=== PATIENT | male | born 1955 | race Caucasian/White ===

== ENCOUNTER → 2023-12-10 08:08 | Outpatient (REF) | payer MEDICARE, OTHER, SELFPAY | LOC: DHSLP 08:08 | PROVIDERS: ATTENDING PHYSICIAN Internal Medicine Critical Care Medicine | DX: G47.61 Periodic limb movement disorder (principal); R06.83 Snoring | CPT/HCPCS: 95810 ==

== ENCOUNTER 2023-12-28 20:06 | Inpatient (IN) | payer MEDICARE, OTHER, SELFPAY ==
[2023-12-28 17:09] VITALS: BP 164/97
--- NOTE | 2023-12-28 17:50 | ED.CVA ---
History of Present Illness
General
Chief Complaint: CVA/TIA Symptoms
Source: patient and spouse
Exam Limitations: none
Time Seen by Provider: 12/28/23 17:33
Onset of Stroke Symptoms
Onset of symptoms known: No
Time pt last seen normal is known: Yes
Date last time pt seen normal: 12/28/23
Travel History
Have you had any contact with someone who has COVID-19?: No
Do you have any symptoms of coronavirus? Fever > 100 degrees, chills, cough, shortness of breath, sore throat, loss of taste or smell, muscle aches, or headache?: No
History of Present Illness
History of Present Illness:
See MDM
Past History
Past History
ED Past Medical History: Hypercholesterolemia and Other (Fibromyalgia)
ED Past Surgical History: Orthopedic
Social History
Tobacco: Non-smoker
Alcohol: None
Phy Exam
Physical Exam
Physical Exam:
See MDM
Scores
NIH Stroke Score
Level of Consciousness: 0 - Alert
LOC Questions: 0-Answers both correctly
LOC Commands: 0-Performs both correctly
Best Horizontal Gaze: 0-Normal
Visual Beth: 0=Normal, no visual loss
Facial Palsy: 0=Normal, symmetrical
Motor - Right Arm: 0=No drift 10 seconds
Motor - Left Arm: 0=No drift 10 seconds
Motor - Right Le-No drift 5 seconds
Motor - Left Le-No drift 5 seconds
Limb Ataxia: 0-Absent
Sensation: 0-Normal
Best Language: 0-No aphasia
Dysarthria: 0-Normal
Extinction and Inattention: 0-No abnormality
Total Score:: 0
Course
Orders/Labs/Results
Orders:
Orders
12/28/23 17:48
NEUROLOGY CONSULT Routine
Consulting Provider: Chio Mckeon
Was physician already notified: Yes
12/28/23 17:51
Complete Blood Count/With Diff Urgent
Comprehensive Metabolic Panel Urgent
NT-proBNP Urgent
PTT Urgent
Prothrombin Time Urgent
Troponin I Urgent
12/28/23 17:53
Clopidogrel Bisulfate [Plavix] 75 mg PO NOW STA
12/28/23 18:00
Electrocardiogram (*1) Urgent
Reason for Study: TIA/Stroke
EKG- Treatment ONCE
Abnormal Lab Results
12/28/23
17:51
MCH 31.9 H pg
(27.0-31.0)
Absolute Monos (auto) 0.8 H 10^3/uL
(0.1-0.6)
Monocytes % 10.0 H %
(1.7-9.3)
BUN 23 H mg/dl
(9-20)
Creatinine 0.6 L mg/dL
(0.7-1.3)
Glucose 148 H mg/dl
(70-99)
12/28/23 17:51
12/28/23 17:51
Vital Signs
Initial and Last Documented VS:
Initial Vital Signs
Temp Pulse Resp BP Pulse Ox
98.0 F 98 18 164/97 96
12/28/23 17:09 12/28/23 17:09 12/28/23 17:09 12/28/23 17:09 12/28/23 17:09
Last Documented Vital Signs
Temp Pulse Resp BP Pulse Ox
98.0 F 87 16 161/96 97
12/28/23 17:09 12/28/23 18:40 12/28/23 18:40 12/28/23 18:40 12/28/23 18:40
MDM/Problems Addressed
Differential Diagnosis Includes:
HPI and MDM Narrative:
68-year-old male presenting for evaluation of stroke found on outpatient MRI. Over the past few years, patient has been developing worsening memory issues. Because patient has chronic memory issues, he talk to his doctor about getting an MRI as a
baseline. The MRI today showed evidence of acute versus subacute strokes in 2 areas. He was sent to the emergency department for evaluation.
On examination, patient denies any significant complaint. His NIH stroke scale is 0. Case discussed with neurology who recommended admit and starting aspirin and Plavix. Patient already took aspirin today
Physical exam
General: Well appearing and non-toxic
HEENT: protecting airway. EOMI. Pupils equal reactive. No visual field deficit
Neck: supple
CV: No evidence of cyanosis. Regular rate and rhythm
Resp: No accessory muscle use
Abd: Non-distended
Extremities: No deformities
Neuro: alert. No focal deficit
Psych: Normal affect
Skin: Intact
Problems Addressed including Acute and Chronic Conditions affecting care:
1. CVA
Acuity: acute
Prognosis: stable
Details: Will start Plavix and admit
Updates
Patient remains well-appearing and still with no focal deficit
Differential Diagnosis (but not limited to): CVA, TIA, carotid stenosis, paroxysmal A-fib
Testing considered: Carotid ultrasound
Drug therapy (if applicable): OTC meds, please see d/c instruction regarding Rx drugs
Amount and/or Complexity of Data Reviewed
Clinical info obtained from: Patient
External data reviewed: MRI done earlier today shows evidence of acute infarct
Labs I independently reviewed (but not limited to): Troponin negative
Radiology: N/A
Pulse Ox: not hypoxic
EKG independently reviewed: Sinus rhythm, normal axis, no STEMI
Equity Research Associate: N/A
Critical Care: N/A
Risk of Complication:
Social Determinants of health: Good social support
Discussed with other providers: Neurology, hospitalist
Escalation of Care includes Admit/Obs: Given the concern for acute infarct, will admit
Occasional wrong word or 'sound a like' substitutions may have occurred due to the inherent limitations of voice recognition software. Read the chart carefully and recognize, using context, where substitutions have occurred.
*Critical Care Note
Total Time (30-74mins, 75-104mins- exclusive of procedures): Not Applicable
ED Attending Note
-
Portions of this chart may have been created with voice recognition software.� Occasional wrong word or��sound alike� substitutions may have occurred due to the inherent limitations of voice recognition software.
Discharge Plan
Departure
Patient Disposition: Admit
Date of Disposition: 12/28/23
Time of Disposition: 19:07
Admit to: Telemetry
Presentation/result/management discussed w/ accepting MD/DO: Hospitalist
Discharge Problem:
Acute CVA (cerebrovascular accident)
Prescriptions:
No Action
aspirin 81 mg Tablet,Delayed Release (Dr/Ec)
81 mg PO DAILY
simvastatin 40 mg tablet
40 mg PO QPM
multivitamin Tablet
1 tab PO DAILY
calcium carbonate [Calcium 600] 600 mg calcium (1,500 mg) Tablet
600 mg PO BID
glucosamine sulfate [Glucosamine] 750 mg Tablet
1,500 mg PO BID
Savella 100 mg tablet
100 mg PO DAILY
saw palmetto
1 tab PO QPM
Referrals:
Venkat Biggs DO [Family Provider] -
Interventions
Interventions:
*Risk Screen - Suicide Last Done: 12/28/23 17:30
*General Assessment Last Done: 12/28/23 17:28
*Neglect/Abuse Screening Last Done: 12/28/23 17:28
*ED COVID-19 Vaccine History Last Done: 12/28/23 17:28
ED- Pulmonary Assessment Last Done: 12/28/23 17:31
ED- Neurological Assessment Last Done: 12/28/23 17:31
ED- Cardiac Assessment Last Done: 12/28/23 17:31
ED Swallowing Screen Last Done: 12/28/23 17:31
[2023-12-28] MEDS: PLAVIX 75 MG PO (18:02)
[2023-12-28 18:04] LABS: % Basophils 0.5 % (0-2); % Eosinophils 2.5 % (0-6); % Immature Granulocytes 0.3 % (0-0.5); % Lymphocytes 30.9 % (20.5-51.1); % Neutrophils 55.8 % (42.2-75.2); Absolute Eosinophils 0.2 10^3/uL (0-0.7); Absolute Lymphocytes 2.3 10^3/uL (1.2-3.4); Absolute Monocytes 0.8 10^3/uL (0.1-0.6); Absolute Neutrophils 4.2 10^3/uL (1.4-6.5); Hematocrit 42.1 % (39.0-52.0); Hemoglobin 15.1 g/dL (13.0-18.0); Mean Corp Hgb Conc. 35.9 g/dL (33.0-37.0); Mean Corpuscular Hgb 31.9 pg (27.0-31.0); Mean Corpuscular Volume 88.8 fL (80.0-94.0); Nucleated Red Blood Cells % 0 % (-); Platelet Count 256 10^3/uL (130-400); Red Blood Cell Count 4.74 10^6/uL (4.70-6.10); Red Cell Dist. Width 12.4 % (11.5-14.5); White Blood Cell Count 7.5 10^3/uL (4.8-10.8)
[2023-12-28 18:15] LABS: INR 1.02; PT 13.2 Sec (11.4-14.6)
[2023-12-28 18:17] LABS: ALT (SGPT) 27 U/L (0-50); AST (SGOT) 29 U/L (17-59); Albumin 4.4 g/dl (3.5-5.0); Alkaline Phosphatase 75 U/L (38-126); Blood Urea Nitrogen 23 mg/dl (9-20); Calcium 9.4 mg/dl (8.4-10.2); Carbon Dioxide 24 mmol/L (22-30); Chloride 106 mmol/L (98-107); Glucose 148 mg/dl (70-99); Potassium 4.1 mmol/L (3.5-5.1); Sodium 137 mmol/L (135-145); Total Bilirubin 0.5 mg/dl (0.2-1.3); Total Protein 7.1 g/dl (6.3-8.2); eGFR > 60.00
[2023-12-28 18:27] LABS: NT-proBNP 26.5 pg/ml; Troponin I < 0.012 ng/ml
[2023-12-28 18:40] VITALS: BP 161/96
--- NOTE | 2023-12-28 19:34 | HPS.HSE ---
Addendum entered and electronically signed by Jamin Hampton MD 12/29/23 18:47:
Correction:
Left thalamic lacunar infarct and infarct in the left parietal lobe cortex; acute /subacute by OP MRI brain�
DDX : embolic CVA ?
NIH zero upon arrival
HLD on Simvastatin 40 daily
- ER d/w Neuro
- add Plavix to DIRECTOR PUBLIC ASA
- <del>Brain</del> <del>MRI</del> <del>in</del> <del>AM</del> MRA CoW/ H & N
- ECHO
- Switch to Atorvastatin [address] Simvastatin
- Neuro consult�
Original Note:
Family Physician
-
Family Physician: Venkat Biggs
Chief Complaint
-
OP MRI POS for CVA
History of Present Illness
68M Retired , Rt hand dominant, reportedly family and friends noted ongoing memory issues for 4- 5yrs. Few days ago had some RESENDIZ . PCP sent for Brain MRI
today around 8 am. MRI POS for acute / sub acute Left thalamic lacunar infarct. Tiny infarct in the left parietal lobe cortex. Patient was told to go to ER.
NIH zero at ER
BP 160/95
Medical History
Past Medical History
Past Medical History: Reports Hypercholesterolemia
Past Surgical History: Reports Orthopedic
Social History
Tobacco: Non-smoker
Alcohol: None
Drug: None
Family History
Family History: Not pertinent
Allergies / Home Medications
Allergies reflects when Allergies were last updated in [employer]
Home Medications with original date entered in [employer]
Allergy/Medication List:
Allergies
Allergy/AdvReac Type Severity Reaction Status Date / Time
No Known Allergies Allergy Unverified 12/28/23 17:15
Home Medications
aspirin 81 mg tablet,delayed release 81 mg PO DAILY 12/28/23
calcium carbonate 600 mg calcium (1,500 mg) tablet (Calcium) 600 mg PO BID 12/28/23
glucosamine sulfate 750 mg tablet 1,500 mg PO BID 12/28/23
milnacipran 100 mg tablet (Savella) 100 mg PO DAILY 12/28/23
multivitamin 1 tab PO DAILY 12/28/23
saw palmetto 1 tab PO QPM 12/28/23
simvastatin 40 mg tablet 40 mg PO QPM 12/28/23
Review of Systems
-
Constitutional: Reports No Symptoms
EENT: Reports No Symptoms
Respiratory: Reports No Symptoms
Cardiac: Reports No Symptoms
Abdomen/GI: Reports No Symptoms
: Reports No Symptoms
Musculoskeletal: Reports No Symptoms
Skin: Reports No Symptoms
Neurological: Reports No Symptoms
Endocrine: Reports No Symptoms
Hematologic/Lymphatic: Reports No Symptoms
Psych: Reports No Symptoms
Physical Exam
Vital Signs
Vital Signs
Temp Pulse Resp BP Pulse Ox
98.0 F 87 16 161/96 97
12/28/23 17:09 12/28/23 18:40 12/28/23 18:40 12/28/23 18:40 12/28/23 18:40
Physical Exam
General: Well Developed and No Apparent Distress; No Pain
HEENT: NormoCephalic, Anicteric, Moist mucous membranes and Atraumatic
Respiratory: Clear
Cardiac: S1/S2, Regular Rhythm and Other (systolic HTN noted )
Breast: Deferred by me
GI: Soft, Non Tender, Non Distended and Normal Bowel Sounds
Rectal: Deferred by Provider
Genito-urinary: Deferred by me
Musculoskeletal: No Clubbing, No Cyanosis and No Edema
Skin: Warm and Dry
Neuro: Alert and Nonfocal/grossly intact
Psych: Calm
Laboratory Results
-
12/28/23 17:51
12/28/23 17:51
Laboratory Results
PT 13.2 Sec (11.4-14.6) 12/28/23 17:51
INR 1.02 12/28/23 17:51
APTT 29.0 Sec (23.4-35.0) 12/28/23 17:51
Total Bilirubin 0.5 mg/dl (0.2-1.3) 12/28/23 17:51
AST 29 U/L (17-59) 12/28/23 17:51
ALT 27 U/L (0-50) 12/28/23 17:51
Alkaline Phosphatase 75 U/L (38-126) 12/28/23 17:51
Troponin I < 0.012 ng/ml 12/28/23 17:51
Data Reviewed
-
MRI: Report Reviewed by me
Lab Data: Labs Reviewed by me
Old Records: Reviewed
Impression/Plan
-
Data
nl CBC
nl Cr
NEG TPNI
p BNP 26
EKG
NORMAL SINUS RHYTHM
MINIMAL VOLTAGE CRITERIA FOR LVH, MAY BE NORMAL VARIANT ( Won product )
NONSPECIFIC ST ABNORMALITY
ABNORMAL ECG
NO PREVIOUS ECGS AVAILABLE
12/28/23 Brain MRI
1. Left thalamic lacunar infarct. Tiny infarct in the left parietal lobe cortex. Both appear to be acute or subacute.
2. Chronic senescent changes.
Last hospitalist admission: 05/12/23- 06/05/23 DC Dx: Diverticulitis
ASSESSMENT & PLAN
Left thalamic lacunar infarct and infarct in the left parietal lobe cortex; acute /subacute by OP MRI brain
DDX : embolic CVA ?
NIH zero upon arrival
HLD on Simvastatin 40 daily
- ER d/w Neuro
- add Plavix to DIRECTOR PUBLIC ASA
- Brain MRI in AM
- ECHO
- Switch to Atorvastatin [address] of Simvastatin
- Neuro consult
Patient is AAO3
Able to recall name of the last Presidents
Up to date with [place] the [place], coming up election in August
Reportedly ongoing memory issues but it does not reflects on my brief cognitive assessment
He reports he has memory issues which is contrary to Dementia patient
Preserved social skills
- to consider OP Neuro psych eval for for memory disorder
- check TSH
Systolic HTN
-add Norvasc 5 mg daily
- Goal BP - normotensive
HX Fibromyalgia
- stable
DVT Px: SCD
Code: Full
IP TLM
[2023-12-28 20:00] VITALS: BP 174/94
[2023-12-28 21:32] VITALS: BP 158/95
[2023-12-28 22:01] VITALS: BP 144/89
[2023-12-28] MEDS: OSCAL CAL 500 500 MG PO (22:25)
[2023-12-28] MEDS: TYLENOL 650 MG PO (22:44)
[2023-12-28] MEDS: MELATONIN 5 MG PO (22:44)
[2023-12-28 23:42] VITALS: BP 156/92
[2023-12-29] VITALS (16 sets, daily range): BP systolic 123–184; BP diastolic 70–127; PULSE 81; BMI 30.9
[2023-12-29] MEDS: APRESOLINE 5 MG IV (05:50)
[2023-12-29 06:27] LABS: Hematocrit 44.1 % (39.0-52.0); Mean Corpuscular Hgb 31.4 pg (27.0-31.0); Mean Corpuscular Volume 92.3 fL (80.0-94.0); Platelet Count 248 10^3/uL (130-400); Red Blood Cell Count 4.78 10^6/uL (4.70-6.10); Red Cell Dist. Width 12.6 % (11.5-14.5); White Blood Cell Count 6.7 10^3/uL (4.8-10.8)
[2023-12-29 06:36] LABS: INR 1.02; PT 13.2 Sec (11.4-14.6)
--- NOTE | 2023-12-29 07:12 | W.PN.HOSP.TC ---
Today's Communication/Plan
-
asa plavix
headache control
Follow up ECHO
cardio eval
blood pressure control
Assessment / Plan
Assessment / Plan
Physical Exam
General: Well Developed and No Apparent Distress; No Pain
HEENT: NormoCephalic, Anicteric, Moist mucous membranes and Atraumatic
Respiratory: Clear
Cardiac: S1/S2, Regular Rhythm
GI: Soft, Non Tender, Non Distended and Normal Bowel Sounds
Musculoskeletal: No Clubbing, No Cyanosis and No Edema, strength equal all ext 5/5
Skin: Warm and Dry
Neuro: AOx3
Psych: Calm
68M Hyperlipidemia Fibromyalgia on savella presents due to concerns memory issues outpatient MRI found acute on subacute stroke. NIH scale score 0 on ED evaluation
Left thalamic lacunar infarct and infarct in the left parietal lobe cortex; acute /subacute by OP MRI brain�
NIH zero on arrival
HLD on Simvastatin 40 daily switched to Atorvastatin
- Neuro eval appreciated
- ASA plavix
- MRA head/neck pending
- ECHO pending
- Cardio eval requested possible benefit SIXTO Holter monitor
Fibromyalgia
cont home Savella
Hypertensive Urgency
Severe headache recurrent (Headache possibly related to HTN vs Stroke)
-Norvasc 5 mg daily added
- Goal BP - normotensive (no significant stroke symptoms at this time, stroke onset likely >48H out of window for permissive hypotension)
-Labetalol prn
-prn Tylenol, once headache cocktail ordered Benadryl Compazine and Toradol (to be given together and in that order), compazine substituted for Reglan d/t reglan interaction with savella
DVT Px: SCD
GI ppx: protonix
Code: Full
IP TLM
Anticipated Discharge: 24 - 48 hours
Subjective/Interval History
-
Date of Service: December 29, 2023
Reports severe headache recurrent issue. Also notes high blood pressure, denies every being diagnosed with hypertension. Denies lightheadedness dizziness chest/pain palpitations. Ambulating without issues. present during evaluation.
Objective Data
-
Labs:
Laboratory Results
12/29/23
06:06
WBC 6.7
Hgb 15.0
Hct 44.1
Plt Count 248
PT 13.2
INR 1.02
Vital Signs:
Vital Signs
Temp Pulse Resp BP Pulse Ox
97.8 F 79 19 168/86 98
12/28/23 23:11 12/29/23 05:50 12/28/23 22:45 12/29/23 05:50 12/28/23 22:48
[2023-12-29 07:28] LABS: TSH Reflex To Free T4 1.35 uIU/ml (0.47-4.68)
--- NOTE | 2023-12-29 07:29 | CON.NEURO ---
Consultation
Order
Date of Consultation: 12/29/23
Reason for Consult: stroke
CC: neck pain
HPI: This is a 68-year-old RH man who presented to [facility] on December 28, 2023 for an evaluation of abnormal brain MRI. According to the patient his was concerned about his cognitive changes that led to neurology evaluation.
Mr. Nava endorses several weeks of moderate right greater than left positional neck pain radiating into the occipital area with no associated head/neck trauma, fever, change in vision, photophobia, phonophobia, provoked was prolonged laying. No
associated motor or sensory symptoms in the arm or change in balance. Mr. Nava has been taking Excedrin on a daily basis to manage his symptoms.
ER VS: 164/ 97, 98, afebrile.
EKG-NSR
Ricardo MRI wo jerrica(12/28/2023)-acute/subacute left thalamic lacunar infarct. Tiny infarct in the left parietal lobe cortex infarcts.
PDMP: none
Labs: Glucose�148, LDL�pending
PMH: HTN, DLP, left arm basal cell carcinoma, osteoporosis, vitamin D deficiency, Chronic bilateral low back, Red-green color blindness, obesity
PSH: L TKA, left lower leg surgery.
SH: , retired from sales nonsmoker; no history excessive alcohol use
FH: No family history of neurodegenerative disease or stroke
All:NKDA
ROS:Constitutional: Negative. Negative for chills, fever and unexpected weight change.
HENT: Positive for impaired hearing
Eyes: Negative. Negative for photophobia, pain and visual disturbance.
Respiratory: Negative for cough, choking and shortness of breath.
Cardiovascular: Negative for chest pain, palpitations and leg swelling.
Gastrointestinal: Negative for abdominal pain and vomiting.
Endocrine: Negative. Negative for cold intolerance.
Genitourinary: Negative for dysuria, flank pain and urgency.
Musculoskeletal: Positive for neck pain
Skin: Negative for rash.
Allergic/Immunologic: Negative. Negative for immunocompromised state.
Neurological: Positive for headache, cognitive change
Psychiatric/Behavioral: Negative for behavioral problems, confusion and hallucinations.
General: Well developed. In no acute distress.
Cardio: Regular rate and rhythm without murmur. Extremities are without cyanosis or edema.
Neuro:
Mental Status: Alert, oriented to person, place, and date. Normal attention and recall. Good fund of knowledge. Follows complex requests across the midline. Comprehension, naming, and repetition intact. Immediate and delayed recall 3/3.
Cranial Nerves: . Pupils are equally round and reactive to light. EOMs full. Visual ortiz full to confrontation. No ptosis. No nystagmus. V1-V3 intact to light touch and pinprick bilaterally, symmetric. Face symmetric. Impaired hearing AU.
The palate elevated well. SCMs and traps 5/5. Tongue midline. No dysarthria.
Motor: Normal bulk and tone. No pronator or arm drift. Strength 5/5 throughout. No clonus.
Reflexes: 2+ throughout the upper extremities and 0/2 knees. 0/2 in AJs. Plantar responses flexor bilaterally. Negative Jordy's bilaterally
Sensory: Preserved proprioception at the toes
Coordination: No dysmetria or tremor.
Gait: deferred
Assessment and Plan:
I. Acute/subacute L GAMEMASTER/ MCA territory infarcts. Likely etiology-embolic.
II. HTN
III. Encephalopathy
-Continue Telemetry monitoring.
-TTE with bubble studies, if unremarkable-please proceed with SIXTO.
-ASA 81 mg QD indefinitely.
-Plavix 75 mg QD for 21 days.
-Lipitor 40 mg QHS.
-IV Toradol 30 mg, Reglan 10 mg, Benadryl 25 mg Q8h PRN for moderate to severe headache.
-MRA head/neck fat suppression protocol
-Follow-up vitamin B12, TSH, hemoglobin, A1c, LDL, ESR/CRp
-PT.
-DVT prophylaxis.
I personally reviewed all radiology and labs along with past medical records pertinent to current medical problems. Total time spent in patient care is 60 minutes.
Thank you for allowing us to participate in the care of this patient. We will continue to follow. Please do not hesitate to contact us with any questions or concerns.
Subjective/Objective
Subjective Data
Date of Service: December 29, 2023
Objective Data
Vital Signs
Temp Pulse Resp BP Pulse Ox
36.6 C 75 18 168/86 94
12/29/23 07:26 12/29/23 07:26 12/29/23 07:26 12/29/23 05:50 12/29/23 07:26
Lab Results
12/29/23 06:06
12/28/23 17:51
PT 13.2 Sec (11.4-14.6) 12/29/23 06:06
INR 1.02 12/29/23 06:06
APTT 29.0 Sec (23.4-35.0) 12/28/23 17:51
Sodium 137 mmol/L (135-145) 12/28/23 17:51
Potassium 4.1 mmol/L (3.5-5.1) 12/28/23 17:51
BUN 23 mg/dl (9-20) H 12/28/23 17:51
Glucose 148 mg/dl (70-99) H 12/28/23 17:51
Calcium 9.4 mg/dl (8.4-10.2) 12/28/23 17:51
Eyj-K-Jbckbwihyyt Pept 26.5 pg/ml 12/28/23 17:51
Patient Allergies
No Known Allergies Allergy (Unverified 12/28/23 17:15)
Medications
-
Active Medications
Generic Name Dose Route Start Last Admin
Trade Name Freq PRN Reason Stop Dose Admin
Acetaminophen 650 mg 12/28/23 21:18
Acetaminophen 650 Mg Rectal Suppository RECTAL 01/25/24 21:17
Q4HPRN PRN
RESENDIZ, mild pain, or temp >100.4F
Acetaminophen 650 mg 12/28/23 21:18 12/28/23 22:44
Acetaminophen 325 Mg Tablet PO 01/25/24 21:17 650 mg
Q4HPRN PRN Administration
RESENDIZ, mild pain, or temp >100.4F
Amlodipine Besylate 5 mg 12/29/23 08:00
Amlodipine 5 Mg Tablet PO 01/26/24 07:59
DAILY BETO
Aspirin 81 mg 12/29/23 08:00
Aspirin 81 Mg (Enteric Coated) Tablet PO 01/26/24 07:59
DAILY BETO
Atorvastatin Calcium 40 mg 12/29/23 18:00
Atorvastatin (Lipitor) 40 Mg Tablet PO 01/26/24 17:59
QPM BETO
Calcium Carbonate 500 mg 12/28/23 22:00 12/28/23 22:25
Calcium Carbonate 500 Mg Tablet PO 01/25/24 21:59 500 mg
BID BETO Administration
Clopidogrel Bisulfate 75 mg 12/29/23 08:00
Clopidogrel 75 Mg Tablet PO 01/26/24 07:59
DAILY BETO
Multivitamins Therapeutic 1 tablet 12/29/23 08:00
Multivitamin Tablet PO 01/26/24 07:59
DAILY BETO
Milnacipran [Savella 0 mg 12/29/23 08:00
] 100 Mg Tablet Po PO 01/26/24 07:59
Daily DAILY BETO
Sodium Chloride 0 flush 12/28/23 22:00
Sodium Chloride 0.9% (Flush) Syringe IV 01/25/24 21:59
PER PROTOCOL BETO
Home Medications
Medication Instructions Recorded
aspirin 81 mg tablet,delayed 81 mg PO DAILY 12/28/23
release
calcium carbonate 600 mg calcium 600 mg PO BID 12/28/23
(1,500 mg) tablet (Calcium)
glucosamine sulfate 750 mg tablet 1,500 mg PO BID 12/28/23
milnacipran 100 mg tablet (Savella) 100 mg PO DAILY 12/28/23
multivitamin 1 tab PO DAILY 12/28/23
saw palmetto 1 tab PO QPM 12/28/23
simvastatin 40 mg tablet 40 mg PO QPM 12/28/23
Vital Signs and Labs
-
Vital Signs and Labs:
Vital Signs
Temp Pulse Resp BP Pulse Ox
36.6 C 75 18 168/86 94
12/29/23 07:26 12/29/23 07:26 12/29/23 07:26 12/29/23 05:50 12/29/23 07:26
Lab Results
12/29/23 06:06
12/28/23 17:51
PT 13.2 Sec (11.4-14.6) 12/29/23 06:06
INR 1.02 12/29/23 06:06
APTT 29.0 Sec (23.4-35.0) 12/28/23 17:51
Sodium 137 mmol/L (135-145) 12/28/23 17:51
Potassium 4.1 mmol/L (3.5-5.1) 12/28/23 17:51
BUN 23 mg/dl (9-20) H 12/28/23 17:51
Glucose 148 mg/dl (70-99) H 12/28/23 17:51
Calcium 9.4 mg/dl (8.4-10.2) 12/28/23 17:51
Onb-K-Fcibbfcunqa Pept 26.5 pg/ml 12/28/23 17:51
Home Medications
-
Home Medications
aspirin 81 mg tablet,delayed release 81 mg PO DAILY 12/28/23
calcium carbonate 600 mg calcium (1,500 mg) tablet (Calcium) 600 mg PO BID 12/28/23
glucosamine sulfate 750 mg tablet 1,500 mg PO BID 12/28/23
milnacipran 100 mg tablet (Savella) 100 mg PO DAILY 12/28/23
multivitamin 1 tab PO DAILY 12/28/23
saw palmetto 1 tab PO QPM 12/28/23
simvastatin 40 mg tablet 40 mg PO QPM 12/28/23
Medications
-
Medications:
Generic Name Dose Route Start Last Admin
Trade Name Freq PRN Reason Stop Dose Admin
Acetaminophen 650 mg 12/28/23 21:18
Acetaminophen 650 Mg Rectal Suppository RECTAL 01/25/24 21:17
Q4HPRN PRN
RESENDIZ, mild pain, or temp >100.4F
Acetaminophen 650 mg 12/28/23 21:18 12/28/23 22:44
Acetaminophen 325 Mg Tablet PO 01/25/24 21:17 650 mg
Q4HPRN PRN Administration
RESENDIZ, mild pain, or temp >100.4F
Amlodipine Besylate 5 mg 12/29/23 08:00
Amlodipine 5 Mg Tablet PO 01/26/24 07:59
DAILY BETO
Aspirin 81 mg 12/29/23 08:00
Aspirin 81 Mg (Enteric Coated) Tablet PO 01/26/24 07:59
DAILY BETO
Atorvastatin Calcium 40 mg 12/29/23 18:00
Atorvastatin (Lipitor) 40 Mg Tablet PO 01/26/24 17:59
QPM BETO
Calcium Carbonate 500 mg 12/28/23 22:00 12/28/23 22:25
Calcium Carbonate 500 Mg Tablet PO 01/25/24 21:59 500 mg
BID BETO Administration
Clopidogrel Bisulfate 75 mg 12/29/23 08:00
Clopidogrel 75 Mg Tablet PO 01/26/24 07:59
DAILY BETO
Multivitamins Therapeutic 1 tablet 12/29/23 08:00
Multivitamin Tablet PO 01/26/24 07:59
DAILY BETO
Milnacipran [Savella 0 mg 12/29/23 08:00
] 100 Mg Tablet Po PO 01/26/24 07:59
Daily DAILY BETO
Sodium Chloride 0 flush 12/28/23 22:00
Sodium Chloride 0.9% (Flush) Syringe IV 01/25/24 21:59
PER PROTOCOL BETO
[2023-12-29 07:32] LABS: VerifyNow Aspirin 399 ARU
[2023-12-29 07:47] LABS: Hepatitis C Antibody Negative (Negative)
[2023-12-29 08:03] LABS: Folate > 20.0 ng/ml (2.76-20); Vitamin B12 802 pg/ml (239-931)
[2023-12-29] MEDS: ASPIR LOW (ENTERIC COATED) 81 MG PO (08:43)
[2023-12-29] MEDS: THERAGRAN 1 TABLET PO (08:44)
[2023-12-29] MEDS: OSCAL CAL 500 500 MG PO ×2 (08:44→21:06)
[2023-12-29] MEDS: NORVASC 5 MG PO (08:44)
[2023-12-29] MEDS: PLAVIX 75 MG PO (08:44)
[2023-12-29 09:49] LABS: Glycohemoglobin (HgbA1c) 6.2 % (4.0-5.6)
[2023-12-29] MEDS: TYLENOL 650 MG PO ×2 (09:59→17:59)
[2023-12-29] MEDS: TRANDATE 10 MG IV (10:32)
--- NOTE | 2023-12-29 10:59 | CM ---
Patient seen at bedside with spouse of 41 years. Patient stated that he lives in a 3 story home and that he has a walker but doesn't need it from prior knee surgery. Patient has no VN or other DME at home. patient PCP is Dr. Merida and he uses the
[facility] [place] [address]. Patient eager to go home. CM will continue to follow for discharge planning needs.
Plan; home with VN vs home with no needs; watch for PT/OT recommendations
--- NOTE | 2023-12-29 11:23 | PTOTSP ---
Patient is independent with all functional mobility. No skilled PT needs at this time. Will D/C PT services.
[2023-12-29] MEDS: BENADRYL 25 MG IV (11:30)
[2023-12-29] MEDS: PROTONIX 40 MG PO (11:32)
[2023-12-29] MEDS: COMPAZINE 10 MG IV (11:33)
[2023-12-29] MEDS: TORADOL 30 MG IV (11:33)
--- NOTE | 2023-12-29 12:12 | PTOTSP ---
Speech Therapy Assessment
Swallowing wfl
Expressive and receptive language deemed within functional limits. However, given new found stroke and the patient report of possible memory impairment at baseline, recommend:
1. Comprehensive testing of cognitive/communication skills in next level of care. Patient was provided information on outpatient services at , if this level of care is deemed appropriate.
2. Continue regular solids and thin liquids.
--- NOTE | 2023-12-29 13:28 | CON.CAR ---
Addendum entered and electronically signed by Garry Bhakta MD 12/29/23 17:46:
68 yo male with PMH of hyperlipidemia admitted with new finding of stroke on outpatient MRI. No CP/SOB. Exam with RRR, no murmus, no edema. Tele: NSR. EKG: NSR. TTE: normal.
We were consulted to evaluate for cardiac source of embolus. Then MRA showed evidence of carotid dissection. Agree with transfer for neurosurgery evaluation.
We will see patient again as outpatient after he is treated for carotid dissection.
Original Note:
Consultation
Consultation Request
Date/Time Consultation Requested: 12/29/23 11:45a
Date/Time Consultation Performed: 12/29/23 1p
Requesting Provider: Dr. Dawkins
Performing Provider: GORDON Riggs for Dr. Bhakta
Reason for Consultation: CVA, requesting SIXTO
Medical History
-
Chief Complaint: abnormal MRI as outpatient
History of Present Illness:
Mr. Nguyễn is a 68 yo male with HLD and fibromyalgia, who presents to the ER as directed by his neurologist for an abnormal outpatient brain MRI on 12/28/23. It showed acute/subacute left thalamic lacunar infarct. Though he is without neuro
symptoms. We are consulted for SIXTO and ILR implant. He had an echo 12/29/23 with normal biventricular size and function, EF 55-60%, no valve disease, interatrial septum is intact with no evidence of shunting by color flow doppler. Tele is stable
in NSR w/o arrhythmia and he denies any cardiac symptoms.
Past Medical History
Past Medical History: Fibromyalgia and Hypercholesterolemia
Past Surgical History: Orthopedic (left TKA x 2)
Social History
Tobacco: Non-Smoker
Alcohol: None
Personal:
Living: With Family
Employment: Retired
Family History
Family History: Reviewed & Not Pertinent
Allergies / Home Medications
Allergy/AdvReac Type Severity Reaction Status Date / Time
No Known Allergies Allergy Unverified 12/28/23 17:15
Medication Instructions Recorded Confirmed Type
aspirin 81 mg tablet,delayed 81 mg PO DAILY 12/28/23 12/28/23 History
release
calcium carbonate 600 mg calcium 600 mg PO BID 12/28/23 12/28/23 History
(1,500 mg) tablet (Calcium)
glucosamine sulfate 750 mg tablet 1,500 mg PO BID 12/28/23 12/28/23 History
milnacipran 100 mg tablet (Savella) 100 mg PO DAILY 12/28/23 12/28/23 History
multivitamin 1 tab PO DAILY 12/28/23 12/28/23 History
saw palmetto 1 tab PO QPM 12/28/23 12/28/23 History
simvastatin 40 mg tablet 40 mg PO QPM 12/28/23 12/28/23 History
Review of Systems
-
History Source: Patient
All other systems: Negative unless noted
Physical Exam
Vital Signs
Temp Pulse Resp BP Pulse Ox
97.6 F 56 12 183/127 99
12/29/23 11:07 12/29/23 11:07 12/29/23 11:07 12/29/23 10:32 12/29/23 11:07
Lab Results
12/29/23 06:06
12/28/23 17:51
Troponin I < 0.012 ng/ml 12/28/23 17:51
Fqe-X-Ivwkxlrudol Pept 26.5 pg/ml 12/28/23 17:51
Physical Exam
General: Well Developed, Well Nourished and No Apparent Distress
HEENT: Normocephalic, Anicteric and Moist Mucous Membranes
Respiratory: Clear and Non Labored Respirations
Cardiac: S1/S2 and Regular Rhythm
Breast: Deferred by me
GI: Soft, Non Tender and Normal Bowel Sounds
Genito-urinary: No Costovertebral Tender
Musculoskeletal: No Clubbing, No Cyanosis and No Edema
Skin: Warm and Dry
Neuro: AO x 3
Hematologic/Lymphatic: No Lymphadenopathy
Psych: Calm
Impression / Plan
-
CVA - brain MRI on 12/28/23 showed acute/subacute left thalamic lacunar infarct.
- no symptoms.
- managed by Neurology.
- now on ASA, Plavix and Lipitor.
- echo 12/29/23 with normal LVEF, no valve disease and no shunting.
- plan for SIXTO and ILR tomorrow, patient is agreeable.
HTN - new on admit.
- elevated readings w/o symptoms.
- Norvasc was added, but still elevated so will add Lisinopril 5mg daily.
- continue to monitor.
HLD - lipid profile pending.
- was on Zocor, now on Lipitor 40mg daily.
- goal LDL < 70 per neurology.
Fibromyalgia - stable on meds, continue.
Data Reviewed
-
EKG: Tracing Personally Visualized and interpreted (SR 87 bpm with LVH )
MRI: Report Reviewed by me (brain MRI on 12/28/23 showed acute/subacute left thalamic lacunar infarct.)
Medical Tests (Nuc Med, Echo etc): Report Reviewed by me (echo 12/29/23 with normal biventricular size and function, EF 55-60%, no valve disease, interatrial septum is intact with no evidence of shunting by color flow doppler.)
Labs: Labs Reviewed by me
[2023-12-29 13:36] LABS: Magnesium 2.1 mg/dl (1.6-2.3)
[2023-12-29 13:40] LABS: C-Reactive Protein < 5.00 mg/L (0.0-10.00)
[2023-12-29 14:27] LABS: Erythrocyte Sed Rate 10 mm/hour (0-20)
[2023-12-29] MEDS: PLAVIX 300 MG PO (15:10)
[2023-12-29] MEDS: NSS 1000 IV (15:13)
--- NOTE | 2023-12-29 15:17 | W.PN.UPDATE ---
Update Note
Progress Note Update
Left distal Carotid Dissection noted on MRI requiring specialized neurosurgery evaluation not available here
Discussed with patient and his , agreeable to transfer
Patient accepted to [facility] for further evaluation treatment. Accepting Physician Dr Tam
-Plavix 300 mg once and IVF started as per discussion with [facility] Dr Kilpatrick
[2023-12-29 15:28] LABS: HDL Cholesterol 43 mg/dl; LDL Cholesterol, Calculated 107 mg/dl; Total Cholesterol 184 mg/dl (50-199); Triglyceride 171 mg/dl (10-149); Very Low Density Lipoprotein 34 mg/dl (0-30)
--- NOTE | 2023-12-29 15:30 | PTCARENOTE ---
Received pt from ED Holds. Pt awake, alert and oriented x3. Neuro assessment unchanged NIH: 0. Pt VSS Bp elevated but improving, MD aware. Pt NSR-ST on tele. PT has IVF infusing, given plavix load per orders. Pt c/o hemorrhoid pain, prep h
ordered. Also c/o headache tolerable at this time. Pt oriented to room, call mata within reach, plan of care ongoing.
[2023-12-29] MEDS: PREPARATION H OINTMENT 1 APPLIC RECTAL (16:12)
--- NOTE | 2023-12-29 16:30 | W.DCSUMMARY ---
Discharge Summary
Discharge Data
Date of Admission: 12/28/23
Date of Discharge: 12/29/23
-
Pending Results: No
Discharge Plan
-
Patient Disposition: Acute Care Hospital
Discharge Orders:
Discharge Patient (As Directed); Ordered 12/29/23
Ordered By: Sravani Dawkins
[2023-12-29] MEDS: LIPITOR 40 MG PO (17:59)
--- NOTE | 2023-12-30 02:03 | PTCARENOTE ---
Report called to Ayan at [facility]. Patient transferred to [facility] via ambulance with all belongings.
== END 2023-12-30 01:50 | disposition short-term general hospital (02) | DRG 64 ==
LOC: 4 EAST ACU 20:06
PROVIDERS: ADMITTING PHYSICIAN Internal Medicine; ATTENDING PHYSICIAN Internal Medicine; CONSULT PHYSICIAN Internal Medicine; CONSULT PHYSICIAN Psychiatry & Neurology Neurology; EMERGENCY PHYSICIAN Student in an Organized Health Care Education/Training Program; FAMILY PHYSICIAN Family Medicine
DX: I63.9 Cerebral infarction, unspecified (principal); I77.71 Dissection of carotid artery; G93.40 Encephalopathy, unspecified; I10 Essential (primary) hypertension; E78.00 Pure hypercholesterolemia, unspecified; M79.7 Fibromyalgia; I16.0 Hypertensive urgency; Z79.82 Long term (current) use of aspirin
CPT/HCPCS: 70030; 70544; 70548; 70553; 80053; 80061; 82607; 82746; 83036; 83735; 83880; 84443; 84484; 85025; 85027; 85576; 85610; 85652; 85730; 86140; 86803; 92523; 92610; 93005; 93306; 99285; A9575; A9585

== ENCOUNTER 2024-01-28 13:22 | Day surgery (SDC) | payer MEDICARE, OTHER, SELFPAY ==
--- NOTE | 2024-01-28 15:28 | ITS.CL.IMPLP ---
[employer] [employer] - Implant Loop
Implant Loop
Procedure Report:
Primary Physician: Venkat Biggs MD
Primary Resource Development Director: Ramses Gardner MD
Procedure Date: 01/28/2024
Procedure: Placement of a loop recorder.
History/Indication:
1. See office H&P for complete history.
2. Patient is a pleasant 68-year-old male with a past medical history significant for hypertension, hyperlipidemia, recent CVA and carotid dissection being treated conservatively. Due to cryptogenic nature of stroke, patient undergoing ILR implant
for arrhythmia monitoring/long-term surveillance.
Method:
After informed consent was obtained, the patient was brought to the EP laboratory holding area in a fasting, non-sedated state. Peripheral access was established. The left chest was prepared and draped in a sterile fashion. A 'time out' was
called. Local anesthesia was injected in the subcutaneous tissue. The ILR was injected under the skin. Topical skin adhesive was applied. Following the procedure, the patient was taken to the recovery area in stable condition. No complications
were noted.
Device Data:
[employer]; Model# [id number]; Serial# [id number]
Conclusion:
Successful placement of a loop recorder.
Recommendations:
1. Follow-up will be arranged in the [facility] in 7-10 days for wound check.
2. Routine ILR care.
Moo Caruso DO
Clinical Cardiac [employer]
cc: Venkat Biggs MD; Ramsse Gardner MD
== END 2024-01-28 15:40 | disposition home or self-care (01) ==
LOC: CATH 13:22
PROVIDERS: ATTENDING PHYSICIAN Internal Medicine Cardiovascular Disease; FAMILY PHYSICIAN Family Medicine; OTHER PHYSICIAN Internal Medicine Cardiovascular Disease
DX: Z09 Encounter for follow-up examination after completed treatment for conditions other than malignant neoplasm (principal); Z86.73 Personal history of transient ischemic attack (TIA), and cerebral infarction without residual deficits; I10 Essential (primary) hypertension; E78.2 Mixed hyperlipidemia; R73.9 Hyperglycemia, unspecified; Z79.82 Long term (current) use of aspirin; Z79.02 Long term (current) use of antithrombotics/antiplatelets
CPT/HCPCS: 33285; C1764

== ENCOUNTER → 2024-05-12 11:07 | Outpatient (REF) | payer MEDICARE, OTHER, SELFPAY | LOC: RAD 11:07 | PROVIDERS: ATTENDING PHYSICIAN Physician Assistant; FAMILY PHYSICIAN Family Medicine | DX: I77.71 Dissection of carotid artery (principal); I63.9 Cerebral infarction, unspecified | CPT/HCPCS: 70496; 70498; Q9967 ==

== ENCOUNTER → 2024-08-25 07:03 | Day surgery (SDC) | payer MEDICARE, OTHER, SELFPAY | LOC: CATH 07:03 | PROVIDERS: ATTENDING PHYSICIAN Internal Medicine Cardiovascular Disease; FAMILY PHYSICIAN Family Medicine | DX: I08.1 Rheumatic disorders of both mitral and tricuspid valves (principal); I10 Essential (primary) hypertension; E78.00 Pure hypercholesterolemia, unspecified; Z86.73 Personal history of transient ischemic attack (TIA), and cerebral infarction without residual deficits; Z79.82 Long term (current) use of aspirin; Z79.01 Long term (current) use of anticoagulants | CPT/HCPCS: 93312; 93320; 93325 ==

== ENCOUNTER 2024-08-30 06:30 | Outpatient (RCR) | payer MEDICARE, OTHER, SELFPAY | END 2024-08-30 23:59 | disposition home or self-care (01) | LOC: ROT 06:30 | PROVIDERS: ATTENDING PHYSICIAN Psychiatry & Neurology Neurology; FAMILY PHYSICIAN Family Medicine | DX: I69.311 Memory deficit following cerebral infarction (principal); I69.310 Attention and concentration deficit following cerebral infarction; Z73.6 Limitation of activities due to disability; R41.3 Other amnesia | CPT/HCPCS: 96125; 97167; 97535 ==

== ENCOUNTER 2024-10-02 07:29 | Outpatient (RCR) | payer MEDICARE, OTHER, SELFPAY | END 2024-10-02 09:31 | disposition home or self-care (01) | LOC: ROT 07:29 | PROVIDERS: ATTENDING PHYSICIAN Psychiatry & Neurology Neurology; FAMILY PHYSICIAN Family Medicine | DX: I69.311 Memory deficit following cerebral infarction (principal); I69.318 Other symptoms and signs involving cognitive functions following cerebral infarction (principal); I69.310 Attention and concentration deficit following cerebral infarction; I63.9 Cerebral infarction, unspecified; Z73.6 Limitation of activities due to disability; R41.841 Cognitive communication deficit; R41.3 Other amnesia | CPT/HCPCS: 97129; 97130 ==

== ENCOUNTER → 2024-11-30 08:53 | Outpatient (REF) | payer MEDICARE, OTHER, SELFPAY ==
[2024-11-30 09:41] LABS: % Basophils 0.6 % (0-2); % Eosinophils 3.5 % (0-6); % Immature Granulocytes 0.2 % (0-0.5); % Lymphocytes 27.6 % (20.5-51.1); % Neutrophils 59.1 % (42.2-75.2); Absolute Eosinophils 0.2 10^3/uL (0-0.7); Absolute Lymphocytes 1.7 10^3/uL (1.2-3.4); Absolute Monocytes 0.6 10^3/uL (0.1-0.6); Absolute Neutrophils 3.7 10^3/uL (1.4-6.5); Hematocrit 43.2 % (39.0-52.0); Hemoglobin 14.9 g/dL (13.0-18.0); Mean Corp Hgb Conc. 34.5 g/dL (33.0-37.0); Mean Corpuscular Hgb 31.6 pg (27.0-31.0); Mean Corpuscular Volume 91.7 fL (80.0-94.0); Mean Platelet Volume 9.3 fL (7.4-10.4); Nucleated Red Blood Cells % 0 % (-); Platelet Count 269 10^3/uL (130-400); Red Blood Cell Count 4.71 10^6/uL (4.70-6.10); Red Cell Dist. Width 12.4 % (11.5-14.5); White Blood Cell Count 6.3 10^3/uL (4.8-10.8)
[2024-11-30 10:00] LABS: ALT (SGPT) 40 U/L (0-50); AST (SGOT) 29 U/L (17-59); Albumin 4.7 g/dl (3.5-5.0); Alkaline Phosphatase 83 U/L (38-126); Blood Urea Nitrogen 24 mg/dl (9-20); Calcium 9.6 mg/dl (8.4-10.2); Carbon Dioxide 30 mmol/L (22-30); Chloride 101 mmol/L (98-107); Glucose 116 mg/dl (70-99); HDL Cholesterol 47 mg/dl; LDL Cholesterol, Calculated 115 mg/dl; Potassium 4.5 mmol/L (3.5-5.1); Sodium 139 mmol/L (135-145); Total Bilirubin 0.6 mg/dl (0.2-1.3); Total Cholesterol 189 mg/dl (50-199); Total Protein 7.5 g/dl (6.3-8.2); Triglyceride 139 mg/dl (10-149); Very Low Density Lipoprotein 27 mg/dl (0-30); eGFR > 60.00
[2024-11-30 10:41] LABS: Vitamin D, 25-OH*** 37.6 ng/mL (30-80)
[2024-11-30 10:54] LABS: PSA, Total - Screen 0.29 ng/ml (0.0-4.0)
[2024-12-01 13:52] LABS: Lipoprotein a (Lp a) 46 mg/dL (<=29)
== END ==
LOC: REG 08:53
PROVIDERS: ATTENDING PHYSICIAN Psychiatry & Neurology Neurology; FAMILY PHYSICIAN Family Medicine
DX: Z00.00 Encounter for general adult medical examination without abnormal findings (principal); E78.00 Pure hypercholesterolemia, unspecified; E78.1 Pure hyperglyceridemia; R73.9 Hyperglycemia, unspecified; M79.7 Fibromyalgia; Z12.5 Encounter for screening for malignant neoplasm of prostate; E55.9 Vitamin D deficiency, unspecified; R41.3 Other amnesia; R53.83 Other fatigue; N52.9 Male erectile dysfunction, unspecified; I63.9 Cerebral infarction, unspecified
CPT/HCPCS: 36415; 80053; 80061; 82306; 83695; 84443; 85025; G0103

== ENCOUNTER → 2024-12-08 13:35 | Outpatient (REF) | payer MEDICARE, OTHER, SELFPAY | LOC: RAD 13:35 | PROVIDERS: ATTENDING PHYSICIAN Psychiatry & Neurology Neurology; FAMILY PHYSICIAN Family Medicine | DX: I63.432 Cerebral infarction due to embolism of left posterior cerebral artery (principal) | CPT/HCPCS: 70496; 70498; Q9967 ==